=== PATIENT | male | born 1970 | race Caucasian/White ===

== ENCOUNTER → 2019-08-07 | Outpatient (CLI) | payer BC ==
--- NOTE | 2019-08-07 09:42 | XR ---
EXAMINATION TYPE: XR shoulder complete LT DATE OF EXAM: 08/07/2019 CLINICAL HISTORY: Left shoulder pain. TECHNIQUE: 2 views of the left shoulder are obtained. COMPARISON: None. FINDINGS: There is no acute fracture/dislocation evident in the left shoulder. Mild narrowing and sp urring at acromioclavicular joint. Downsloping acromion noted. Mild narrowing glenohumeral joint. Th e visualized ribs are intact and unremarkable. IMPRESSION: As above.
== END | disposition home or self-care (01) ==
LOC: RADXRMAIN 08:46
PROVIDERS: ATTEND Orthopaedic Surgery
DX: M25.812 Other specified joint disorders, left shoulder (principal); M25.512 Pain in left shoulder

== ENCOUNTER → 2019-08-20 | Outpatient (CLI) | payer BC ==
--- NOTE | 2019-08-20 12:15 | MR ---
EXAMINATION TYPE: MR shoulder LT wo con DATE OF EXAM: 08/20/2019 COMPARISON: Plain film 08/07/2019 HISTORY: Pain in left shoulder TECHNIQUE: Multiplanar, multisequence imaging of the left shoulder is performed without contrast. FINDINGS: Rotator Cuff: There is abnormal intrasubstance signal noted, coronal image #15 and 14, abnormal incre ased signal present at the insertion of the conjoined tendon, coronal image #12 and 13. Acromioclavicular Joint: Distal acromion is downturned, distal acromial spur suspected. Acromion clav icular joint shows hypertrophic change causing some mass effect on muscular tendinous junction of sup raspinatus. Glenohumeral Joint: Maintained Labrum: The labrum appears grossly intact given limitation of non-arthrogram study. Biceps Tendon: There is fluid signal present along the long head of biceps tendon which shows a lizet l position in the bicipital groove Bone marrow signal: Pseudocysts are present in the humeral head. Other: Some fluid signal present in the subacromial subdeltoid bursa. IMPRESSION: Partial tear at the rotator cuff insertion may represent rim rent tear. Correlate for impingement.
== END ==
LOC: RADMRIMAIN 08:29
PROVIDERS: ATTEND Orthopaedic Surgery
DX: M75.112 Incomplete rotator cuff tear or rupture of left shoulder, not specified as traumatic (principal)

== ENCOUNTER → 2019-10-22 | Outpatient (CLI) | payer BC ==
[2019-10-22 14:23] LABS: Basophils # (A) 0.1 k/uL (0-0.2); Basophils % (A) 1 %; Eosinophils # (A) 0.2 k/uL (0-0.7); Eosinophils % (A) 2 %; HCT 48.8 % (39.0-53.0); HGB 16.5 gm/dL (13.0-17.5); Lymphocytes % (A) 24 %; MCHC 33.9 g/dL (31.0-37.0); MCV 88.5 fL (80.0-100.0); Mean Platelet Volume 10.3; Monocytes # (A) 0.4 k/uL (0-1.0); Monocytes % (A) 5 %; Neutrophils # (A) 5.6 k/uL (1.3-7.7); Neutrophils % (A) 65 %; Platelet Count 156 k/uL (150-450); RBC 5.51 m/uL (4.30-5.90); RDW 13.1 % (11.5-15.5); WBC 8.6 k/uL (3.8-10.6)
--- NOTE | 2019-10-23 14:25 | HP ---
HISTORY AND PHYSICAL DATE OF SURGERY: 10/24/2019 Jackie Kay is a 49-year-old patient seen with progressive left shoulder pain. After we discussed options for treatment, the patient elected to proceed with left shoulder arthroscopy. Consent regarding the procedure was obtained. PAST MEDICAL HISTORY: Noncontributory. PAST SURGICAL HISTORY: Noncontributory. DAILY MEDICATIONS: [place]. ALLERGIES: None. SOCIAL HISTORY: Currently smokes 1 pack of cigarettes daily. PHYSICAL EXAMINATION: Evaluation of the left shoulder, flexion 170 degrees, abduction 160 degrees, external rotation is 50 degrees with pain and weakness. There is tenderness along the anterior lateral acromion rotator cuff insertion site. Impingement sign is positive at 90 degrees. Drop-arm sign is positive. Distal neurovascular exam is intact. RADIOGRAPHS: Left shoulder type 2 anterior acromion, acromioclavicular joint osteoarthritis and cystic changes of the greater tuberosity as well as some osteoarthritic changes. MRI left shoulder dated 08/20/2019 revealed rotator cuff tear and impingement. IMPRESSION: 1. Left shoulder impingement with rotator cuff tear. 2. Left shoulder acromioclavicular joint osteoarthritis. 3. Tobacco use. PLAN: Left shoulder arthroscopy with subacromial decompression, arthroscopic rotator cuff repair, Luis procedure and debridement. MMODL / IJN: [id number] /
== END | disposition home or self-care (01) ==
LOC: LABPAT 12:57
PROVIDERS: ATTEND Orthopaedic Surgery
DX: Z01.810 Encounter for preprocedural cardiovascular examination (principal); Z01.812 Encounter for preprocedural laboratory examination; M75.42 Impingement syndrome of left shoulder
CPT/HCPCS: 80051; 85025; 93005

== ENCOUNTER → 2019-10-24 | Day surgery (SDC) | payer BC ==
[2019-10-22 09:33] VITALS: BMI 30.4
[~2019-10-24] MED LIST: DEXAMETHASONE SOD PHOSPHATE 10 MG/ML 1 ML VIAL IV ONE; GLYCOPYRROLATE 0.2 MG/ML 2 ML VIAL ONE; HYDROmorphone (PF) 1 MG/ML ONE; HYDROmorphone 0.5 MG/0.5 ML SYRINGE IVP PRN; LIDOCAINE 1% 20 ML VIAL (10MG/ML) FOR IV START INTRADERMA PRN; LIDOCAINE 1% INJ 10MG/ML (20 ML MDV) ONE; MIDAZOLAM 2 MG/2 ML VIAL IV PRN; MIDAZOLAM 2 MG/2 ML VIAL ONE; NEOSTIGMINE 1 MG/ML 10 ML VIAL ONE; ONDANSETRON 4 MG/2 ML VIAL IVP ONE; PROPOFOL 10 MG/ML 20 ML VIAL IV ONE; ROCURONIUM BROMIDE 10 MG/ML 10 ML VIAL IV ONE; ROPIVACAINE 5 MG/ML 30 ML VIAL ONE; SUCCINYLCHOLINE CHLORIDE 100 MG/5 ML SYR IV ONE; fentaNYL (PF) 50 MCG/ML 2 ML AMP IVP PRN; fentaNYL (PF) 50 MCG/ML 2 ML AMP ONE; traMADol 50 MG TAB PO ONE
[2019-10-24] MEDS: LACTATED RINGERS 1,000 ML IV SCH ×2 (06:47→07:22)
--- NOTE | 2019-10-24 07:54 | P.ANPRN ---
Procedure Note - Anesthesia - Nerve Block Performed Left Interscalene Single Time Out Performed: Yes Date of Procedure: 10/24/19 Procedure Start Time: 06:52 Procedure Stop Time: 07:01 Location of Patient: PreOp Indication: Acute Post-Operative Pain, Requested by Surgeon Specifically requested for management of pain by DrPankaj: Bradford Castillo Sedation Type: Sedate with meaningful contact maintained Preparation: Sterile Prep Position: Supine Catheter: None Needle Types: Pajunk Needle Gauge: 21 Ultrasound used to visualize needle placement: Yes Ultrasound used to observe medication spread: Yes Injectate: 0.5% Ropivacaine (see comment for volume) (20 cc) Blood Aspirated: No Pain Paresthesia on Injection Noted: No Resistance on Injection: Normal Image Stored and Saved: Yes Events: Uneventful and Well Tolerated
[2019-10-24 09:09] VITALS: TEMP 97
--- NOTE | 2019-10-24 09:09 | P.OP ---
Date of Procedure: 10/24/19 Preoperative Diagnosis: Left shoulder impingement Postoperative Diagnosis: 1. Left shoulder rotator cuff tear 2. Left shoulder impingement 3. Left shoulder acromioclavicular joint osteoarthritis Procedure(s) Performed: 1. Left shoulder arthroscopic rotator cuff repair 2. Left shoulder arthroscopic subacromial decompression 3. Left shoulder arthroscopic Luis procedure Implants: 14.75 Arthrex swivel lock anchor Anesthesia: GETA, regional (Interscalene block) Surgeon: Bradford Castillo Heavy Mobile Equipment Repairer #1: Zackary Laureano Estimated Blood Loss (ml): 10 Pathology: none sent Condition: stable Disposition: PACU Indications for Procedure: 49-year-old patient seen with progressive left shoulder pain. After treatment options were discussed, he elected to proceed with arthroscopy. Operative Findings: See description of procedure Description of Procedure: Patient underwent an interscalene block by department of anesthesia. The patient was then taken to the operative suite. The patient underwent a general anesthetic by the department of anesthesia. The patient was placed into a lateral position and secured. There was appropriate padding of the bony promine nce. Left shoulder was then prepped and draped in normal sterile orthopedic fashion. We placed the extremity in 10 pounds of longitudinal traction. A posterior incision was now made for a posterior working portal site. The trocar and cannula were inserted into the glenohumeral joint. Arthroscopy was initiated. Spinal needle was now inserted anteriorly, to ascertain the anterior working portal site. An incision was now made in that area, a trocar was inserted followed by a probe. There was some superficial tearing of the anterior labrum. The long head biceps tendon appeared intact and stable. The superior posterior and inferior labrum were probed and found to be stable. I debrided that superficial labral tear. The residual labrum was stable. There were grade 1, changes of the humeral head with no osteochondral tears. At this point instruments removed from glenohumeral joint. Utilizing the posterior working portal site, the trocar and cannula were inserted into the subacromial space. Arthroscopy initiated. I made an incision 2 fingerbreadths lateral to the acromion. I introduced my trocar followed by my ArthroCare ablator. I now began ablating thick subacromial bursal tissue, which exposed the undersurface of the anterior acromion. There was diminished subacromial space. There was a very prominent anterior acromion. A motorized bur was introduced and a subacromial decompression was performed. I also excised some osteophytes off the inferior aspect of the distal clavicle. The AC joint was visualized and noted to be fairly arthritic. The motorized bur was introduced in the anterior portal site and a Luis procedure was performed without difficulty, decompressing the AC joint nicely. I turned my attention to the rotator cuff. There was a full-thickness perforation along the anterior aspect of the distal supraspinatus. I debrided the margins getting down to stable tendon tissue. The defect measured 11.5 cm. I abraded the footprint with a motorized bur. I now with assistance Sachin RAM passed 2 everted mattress sutures through good bites of rotator cuff tendon. I now punched a hole in the footprint area for insertion of an anchor. I now passed all 4 limbs of suture through a 4.75 Arthrex swivel lock anchor. I introduced the eyelet into our pre-punch hole. I held in position while Sachin RAM tension the sutures and deployed the anchor. There was good fixation of the anchor. We had good compression of the tendon along the footprint. All residual suture limbs were now clipped. I injected 1 mL Renyte intra-articular. We had good compression of the tendon along the entire footprint. Instruments now removed from the portal sites. All portal sites were approximated with nylon suture. Sterile dressings were applied followed by a shoulder immobilizer. Zackary RAM assisted in this complex case. The patient was awakened, transferred to a bed, and taken to recovery in stable condition.
[2019-10-24 09:27] VITALS: RESP 16
[2019-10-24 11:48] VITALS: BP 112/79; PULSE 70
== END | disposition home or self-care (01) ==
LOC: OR 05:51
PROVIDERS: ATTEND Orthopaedic Surgery
DX: M75.122 Complete rotator cuff tear or rupture of left shoulder, not specified as traumatic (principal); M19.012 Primary osteoarthritis, left shoulder; M75.42 Impingement syndrome of left shoulder; F17.210 Nicotine dependence, cigarettes, uncomplicated; Z79.891 Long term (current) use of opiate analgesic; Z87.442 Personal history of urinary calculi
CPT/HCPCS: 64415; 76942; 29827; 29826; 29824; C1713; Q4212; J2250; J1100; J2710; J0690; J2405; J2001; J3010; J1170; J2795; J0330; J2704